=== PATIENT | female | born 1960 | race Two or more races ===

== ENCOUNTER 2021-01-13 11:54 | Emergency (ER) | payer OTHER ==
[~2021-01-13] VITALS: Ht 162.6 cm; Wt 47.6 kg
[2021-01-13] MEDS ORDERED: diphenhydrAMINE HCL 50 MG/ML VIAL IM ONE (12:00)
[2021-01-13] MEDS ORDERED: LIDOCAINE 1%-EPI 1:100,000 20 ML VIAL TP ONE (12:00)
[2021-01-13] MEDS ORDERED: HALOPERIDOL LACTATE INJ 5 MG/ML VIAL IM ONE (12:00)
[2021-01-13] MEDS ORDERED: TDAP [DIPH/PERTUSSIS/TET] 0.5 ML VIAL IM ONE ×2 (12:00→15:57)
[2021-01-13] MEDS ORDERED: LORAZEPAM INJ 2 MG/ML VIAL IM/IV ONE (12:00)
[2021-01-13] MEDS ORDERED: HALOPERIDOL LACTATE INJ 5 MG/ML VIAL ONE (12:04)
[2021-01-13] MEDS ORDERED: LORAZEPAM INJ 2 MG/ML VIAL ONE (12:04)
[2021-01-13] MEDS ORDERED: diphenhydrAMINE HCL 50 MG/ML VIAL ONE (12:04)
--- NOTE | 2021-01-13 12:45 | NUR ---
KRYSTA FROM HOME TO ER BED 7. ALERT AND AWAKE. BROUGHT IN FOR FACIAL LACERATION S/P TRIP AND FALL HITTING HER L CHEEK ON THE EDGE OF THE BED. PT NOTED WITH HEAVY BLEEDING, 2 CM LACERTION W/ SWELLING. LIPS SWELLING, DISCOLORATION AND LACERATION AND L PERIORBITAL DISCOLORATION. MD WAS AT THE BEDSIDE FOR EVAL. EMT AT BEDSIDE FOR WOUND CARE. CAREGIVER AT BEDSIDE WELL
[2021-01-13] MEDS ORDERED: KETAMINE HCL (500MG/10ML) 50 MG/ML VIAL ONE (12:47)
[2021-01-13] MEDS ORDERED: LIDOCAINE 1%-EPI 1:100,000 20 ML VIAL ONE (12:47)
[2021-01-13] MEDS ORDERED: KETAMINE HCL (500MG/10ML) 50 MG/ML VIAL IV ONE (13:00)
--- NOTE | 2021-01-13 13:03 | NUR ---
WAS AT THE BEDSIDE FOR SUTURE
--- NOTE | 2021-01-13 13:44 | NUR ---
PT BACK FROM CT
--- NOTE | 2021-01-13 14:06 | NUR ---
pt to radiology on [facility] for face ct
--- NOTE | 2021-01-13 15:44 | NUR ---
[facility]
--- NOTE | 2021-01-13 16:35 | NUR ---
Note [email or web address] in EDM - 01/13/21 at 1636 by ARSLAN Patient discharged to home in stable condition. Written and verbal after care instructions given. Patient verbalizes understanding of instruction.IV removed. Catheter intact and site benign. Pressure and 4x4 applied to site. No bleeding noted. Pt ambulatory with a steady gait
--- NOTE | 2021-01-13 16:35 | NUR ---
Patient discharged to home in stable condition. Written and verbal after care instructions given. Patient verbalizes understanding of instruction.IV removed. Catheter intact and site benign. Pressure and 4x4 applied to site. No bleeding noted. Pt assisted out on wheelchair.
[2021-01-13 16:43] VITALS: BP 136/83
== END 2021-01-13 16:44 | disposition home or self-care (01) ==
LOC: ER 11:54
DX: S01.412A Laceration without foreign body of left cheek and temporomandibular area, initial encounter (principal); S09.8XXA Other specified injuries of head, initial encounter; F84.0 Autistic disorder; W01.198A Fall on same level from slipping, tripping and stumbling with subsequent striking against other object, initial encounter; Y93.89 Activity, other specified; Y92.89 Other specified places as the place of occurrence of the external cause; Y99.8 Other external cause status; G80.9 Cerebral palsy, unspecified
CPT/HCPCS: 12013; 70450; 70486; 90471; 90715; 96372 ×2; 99152; 99285; A6403 ×2; J1200; J1630; J2060; J3490 ×2; G0500